=== PATIENT | male | born 1995 | race Caucasian/White ===

== ENCOUNTER 2021-12-28 12:26 | Outpatient (REF) | payer BC, SELFPAY ==
--- NOTE | ~2021-12-28 | XR_ITS ---
EXAMINATION: XR SHOULDER, RIGHT CLINICAL INFORMATION: Sprain of the acromioclavicular joint COMPARISON: None TECHNIQUE: Three views of the right shoulder. FINDINGS: No fracture or dislocation. The glenohumeral joint is well aligned. The acromioclavicular joint is intact. The visualized lung is clear. The visualized ribs are intact. XR/XR shoulder RT min 2V IMPRESSION: Normal right shoulder.
== END 2021-12-28 12:27 | disposition home or self-care (01) ==
LOC: HO.HMGCX 12:26
PROVIDERS: Visit Provider Internal Medicine
DX: S43.51XA Sprain of right acromioclavicular joint, initial encounter (principal)
CPT/HCPCS: 73030

== ENCOUNTER 2023-01-23 11:18 | Outpatient (REF) | payer OTHER, SELFPAY ==
--- NOTE | ~2023-01-23 | XR_ITS ---
EXAMINATION: XR CHEST CLINICAL INFORMATION: Wheezing COMPARISON: None available. TECHNIQUE: 2 views of the chest were obtained. FINDINGS: No significant abnormality is noted involving the heart, lungs, mediastinum, bony thorax or soft tissues. XR/XR chest 2V IMPRESSION: Unremarkable examination.
== END 2023-01-23 11:19 | disposition home or self-care (01) ==
LOC: HO.HMGCX 11:18
PROVIDERS: Visit Provider Nurse Practitioner Family
DX: R05.9 Cough, unspecified (principal); R06.2 Wheezing
CPT/HCPCS: 71046

== ENCOUNTER 2023-03-29 08:55 | Outpatient (AMB) | payer OTHER, SELFPAY ==
--- NOTE | 2023-03-29 08:58 | MHC.PC.OV ---
Vital Signs 03/29/23 08:59 Height 6 ft 4 in Weight 186 lb BMI 22.6 BP 130/78 Blood Pressure Location Rt brachial Position Sitting Pulse 72 Pulse Source Pulse Oximeter Pulse Oximetry (%) 98 Intake Visit Reasons: NPV-Requesting pe Intake Note: pt is here for npv, requesting physical. Stock Driver Required: No Accompanied by: Self / Same As Patient Allergies No Known Allergies [No Known Allergies*] Allergy (Verified 03/29/23 09:22) Tobacco use date assessed: 03/29/23 Dental Screening Dental Screen Date: 03/29/23 Did you have a dental visit in the last 12 months?: Yes Did you have a dental problem in the last 6 months where you did not have access to dental care?: No Was dental information given to patient?: Patient declined HPI HPI Comments History of Present Illness Details 27-year-old male presents to [facility] care. He was last seen by his former PCP 10-11 years ago. He notes he had blood work done at [facility] ED 2-3 months ago for c/o nausea and vertigo. He reports h/o ADHD, was on Ritalin when he was 9 y/o but stopped taking it d/t adverse reaction of excessive weight loss and feeling groggy. He states he attempted therapy a few times in the past but did not like it. He does not want to be referred to a therapist. He notes that he was followed by [facility]. He reports he has been increasing anxious, irritable, and unable to focus the past year. He is willing to start medication treatment. He denies diagnoses of anxiety and depression. He has been smoking 12-13 cigarette daily for the past 20 years. He requests medication treatment for smoking cassation. [facility] Surgical History (Updated 03/29/23 @ 09:03 by Keith Hernandez CMA) No pertinent past surgical history Social History (Updated 03/29/23 @ 09:04 by Keith Hernandez CMA) Housing: House Alcohol intake: current Alcohol intake frequency: a few times a month Alcohol type: beer Patient Tobacco Use Status: Current everyday Tobacco user Cigarettes Per Day: 12 e-Cigarette/Vaping Use: Never Used service: No Current occupational status: employed Current occupation: construction Current occupational exposures/hazards: No Cognitive needs: No Hearing needs: No Vision needs: No Questionnaire PHQ-9 Over the last 2 weeks, how often have you been bothered by any of the following problems? 1. Little interest or pleasure in doing things: more than half the days 2. Feeling down, depressed, or hopeless: several days 3. Trouble falling or staying asleep, or sleeping too much: nearly every day 4. Feeling tired or having little energy: more than half the days 5. Poor appetite or overeating: several days 6. Feeling bad about yourself - or that you are a failure or have let yourself or your family down: not at all 7. Trouble concentrating on things, such as reading the newspaper or watching television: nearly every day 8. Moving or speaking so slowly that other people could have noticed. Or the opposite - being so fidgety or restless that you have been moving around a lot more than usual: more than half the days 9. Thoughts that you would be better off or of hurting yourself in some way: not at all Total score: 14 Depression Screening Interpretation: Positive Depression Screening Follow-up: Existing condition and New Medication prescribed 90174 - PHQ-9 Billing: Yes Source: Developed by Drs. Morales Azul, Harika Lopez, Mk Bird and colleagues, with an educational anabella from [employer]. Thrive Questionnaire Date Thrive assessed: 03/29/23 I am a: Patient What is your living situation today?: I have a steady place to live Within the past 12 months, did the food you bought not last and you didn't have the money to get more?: Never true Within the past 12 months, did you worry whether your food would run out before you got money to buy more?: Never true Do you have trouble paying for medicines?: No Do you have trouble getting transportation to medical appointments?: No Do you have trouble paying your heating and electricity bill?: No Do you have trouble taking care of your child, family member or friend?: No Do you have trouble with day-to-day activities such as bathing, preparing meals, shopping, managing finances, etc.?: No Are you currently unemployed and looking for a job?: No Are you interested in more education?: No Please select the resources that you would like help with: None Currently or been in a relationship where the following occur: no concerns reported AUDIT C Alcohol Use Questionnaire (AUDIT-C) 1. How often do you have a drink containing alcohol?: 2-4 times a month 2. How many drinks containing alcohol do you have on a typical day when you are drinking?: 1 or 2 3. How often do you have six or more drinks on one occasion?: Never Total Score: 2 ODELL-7 AMB Questionnaire ODELL-7 Date ODELL - 7 assessed: 03/29/23 Feeling nervous, anxious, or on edge: 2 = More than half the days Not being able to stop or control worryin = Several days Worrying too much about different things: 2 = More than half the days Trouble relaxin = More than half the days Being so restless that it is hard to sit still: 2 = More than half the days Becoming easily annoyed or irritable: 3 = Nearly every day Feeling afraid as if something awful might happen: 2 = More than half the days Total ODELL-7 score (0-4 normal; 5-9 mild; 10-14 moderate; 15-21 severe): 14 Source: Developed by Drs. Morales Azul, Harika Lopez, Mk Bird and colleagues, with an educational anabella from [employer]. ODELL-7 Assessment Billing ODELL-7 Assessment Tool: ODELL-7 Assessment 04363 Review of Systems Const Details: Const Denies chills, Denies fatigue, Denies fever(s), Denies headache(s) and Denies weakness ENT Denies dizziness and Denies headache(s) Card Denies chest pain, Denies lightheadedness, Denies dyspnea and Denies other (Palpitations) Resp Denies cough, Denies dyspnea, Denies wheezing and Denies other ( shortness of breath) GI Denies abdominal pain, Denies melena, Denies hematochezia, Denies change in bowel habits, Denies dyspepsia and Denies nausea Denies hematuria and Denies dysuria Musc Denies abnormal gait, Denies myalgias, Denies arthralgias, Denies numbness and Denies tingling Skin/Breast Denies rash, Denies unusual bruising and Denies wounds Neuro Denies abnormal gait, Denies dizziness, Denies headache(s), Denies memory loss, Denies numbness, Denies Sensory deficit (Neuro), Denies tingling and Denies weakness Psych Reports anxiety and Reports depression Endo Denies cold intolerance, Denies fatigue, Denies heat intolerance, Denies polydipsia and Denies polyuria Aller/Immun Denies wheezing Physical exam (Primary Care) Vital Signs: Last Vital Signs Pulse 72 03/29/23 08:59 BP 130/78 03/29/23 08:59 Pulse Ox 98 03/29/23 08:59 BMI result Body Mass Index 22.6 Tobacco/Smoking Status: Tobacco use Status Tobacco use date assessed 03/29/23 03/29/23 09:01 Patient Tobacco Use Status Current everyday Tobacco 03/29/23 09:04 e-Cigarette/Vaping Use Never Used 03/29/23 09:04 PHQ-9: PHQ-9 Score PHQ-9: Total score 14 03/29/23 09:18 Depression Screening Interpretation: Positive Depression Screening Follow-up: Existing condition and New Medication prescribed Thrive Assessment: Date of Thrive Assessment Date Thrive assessed 03/29/23 03/29/23 09:08 Currently or been in a relationship where the following occur: no concerns reported Const Other: General: no acute distress and well developed Nutritional Appearance: well nourished Orientation/consciousness: patient oriented x3 HENMT Head: Yes normocephalic and Yes atraumatic Eyes General: appearance normal, both eyes and all related structures Pupils: Equal, round and reactive pupils present EOM: EOMs intact bilaterally Resp Effort & Inspection: normal respiratory effort Auscultation: clear to auscultation bilaterally Cardio Rate: regular rate Rhythm: regular rhythm Heart sounds: S1 normal heart sound present, S2 normal heart sound present, no gallops, no murmurs and no rubs GI Palpation (GI): No Abdominal aortic bruit present, Soft to palpation, nontender, No hepatosplenomegaly present and No Rebound tenderness present Auscultation: normal bowel sounds General: Yes no CVA tenderness Back/Spine/Pelvis Back: no CVA tenderness Cervical Spine: cervical ROM normal and No Cervical spine tenderness Thoracic/Lumbar Spine: thoraco-lumbar ROM normal, No pain with thoraco-lumbar ROM, No thoracic spinal tenderness and No lumbar spinal tenderness Extrem General: Yes normal to inspection, No edema and No calf tenderness Skin General: warm and dry. Normal skin color. Normal skin turgor Lesions: no lesions Rashes: no rashes Trauma: no lacerations or abrasions Wounds: no wounds Nails: normal Neuro General: patient oriented x3, gait normal and no focal neuro deficit Cranial nerves: Yes Equal, round and reactive pupils present Cognition (Neuro): normal cognition Gait exam (Neuro): Normal gait present Motor exam (neuro): 5/5 motor strength present throughout Sensory Exam: No Sensory deficit (Neuro) Psych Appearance: grossly normal Affect: normal affect Attitude: cooperative Thought process: Normal thought process present Assessment and Plan Assessment & Plan (1) Anxiety and depression: Code(s): F41.9 - Anxiety disorder, unspecified; F32.A - Depression, unspecified Plan: PHQ-9 and ODELL-7 scores revealed moderate depression and anxiety Declined talk therapy Wellbutrin ordered. Take as prescribed Routine exercise encouraged Will request and review lab work from [facility] ED in order more labs if warranted Follow-up in 1 month or return sooner with worsening or new symptoms Verbalized understanding and agreed with treatment plan (2) ADHD: Code(s): F90.9 - Attention-deficit hyperactivity disorder, unspecified type Plan: Reports history of ADHD Will obtain previous records to confirm diagnosis and change care plan if warranted Treatment as above (3) Smoking: Code(s): F17.200 - Nicotine dependence, unspecified, uncomplicated Plan: He notes he has been smoking 12-13 cigarette daily for the past 20 years. He requests medication treatment for smoking cassation. He is on Wellbutrin for anxiety, depression, and ADHD; may help with smoking cessation. Take as prescribed Follow-up in 1 month Return sooner with symptoms or concerns Verbalized understanding and agreed with the plan. Medications: New bupropion HCl 100 mg PO BID 60 tabs 3RF 30 days Coding Level of Care Code New Pt Level 3 (26872) Diagnoses Anxiety and depression F41.9; F32.A ADHD F90.9 Smoking F17.200 Additional Codes ODELL-7 Assessment Billing - ODELL-7 Assessment Tool: ODELL-7 Assessment 12534 ([id number]) Time Spent (min) 30
[2023-03-29 08:59] VITALS: BP 130/78; PULSE 72; O2SAT 98; BMI 22.6
== END 2023-03-29 09:49 | disposition home or self-care (01) ==
PROVIDERS: Visit Provider Nurse Practitioner Family
DX: F41.9 Anxiety disorder, unspecified (principal); F32.A Depression, unspecified; F90.9 Attention-deficit hyperactivity disorder, unspecified type; F17.200 Nicotine dependence, unspecified, uncomplicated
CPT/HCPCS: 96127; 99213

== ENCOUNTER 2023-04-26 08:34 | Outpatient (AMB) | payer OTHER, SELFPAY ==
[2023-04-26 08:38] VITALS: BP 118/78; PULSE 67; RESP 12; TEMP 36.5; O2SAT 99; BMI 22.4
--- NOTE | 2023-04-26 08:38 | A.OFFPC_ITS ---
Vital Signs 04/26/23 08:38 Height 6 ft 4 in Weight 184 lb 2 oz BMI 22.4 BP 118/78 Blood Pressure Location Lt brachial Position Sitting Respiration 12 Pulse 67 Pulse Source Pulse Oximeter Temp 97.7 F Temp Source Temporal Artery Scan Pulse Oximetry (%) 99 Oxygen Delivery Method Room Air Intake Visit Reasons: 1 month anxiety, depression, ADHD Intake Note: Patient currently doesnt have any concerns. Data Communications Technician Required: No Accompanied by: Self / Same As Patient Allergies No Known Allergies [No Known Allergies*] Allergy (Verified 04/26/23 08:51) Medication List - Last Reconciled 04/26/23 by Lincoln Lopez CNP bupropion HCl 100 mg PO BID 30 days Tobacco use date assessed: 03/29/23 Dental Screening Dental Screen Date: 04/26/23 Did you have a dental visit in the last 12 months?: No Did you have a dental problem in the last 6 months where you did not have access to dental care?: No Was dental information given to patient?: Yes HPI HPI Comments History of Present Illness Details 27-year-old male presents for anxiety, depression, and ADHD follow-up. He was prescribed Wellbutrin a month ago for mood disorders and smoking cessation. He notes he has been taking his medication as prescribed. He states that he is less irritable since he started Wellbutrin. He reports h/o ADHD at childhood. He notes he was on adderall. Review of his pediatric record revealed that the patient was diagnosed with ADHD and was on Adderall 10 mg in 2005 and Concerta 18 mg in 2004. He notes that he does not want to be on Adderall or Ritalin due to h/o adverse reactions such as decreased appetite on those medications. He notes that his cigarette smoking has reduced to 8 cigarettes from 12-13 daily. [facility] Medical History (Updated 04/26/23 @ 09:09 by Lincoln Lopez CNP) No pertinent past medical history Surgical History No pertinent past surgical history Social History Housing: House Alcohol intake: current Alcohol intake frequency: a few times a month Alcohol type: beer Patient Tobacco Use Status: Current everyday Tobacco user Cigarettes Per Day: 8 e-Cigarette/Vaping Use: Never Used service: No Current occupational status: employed Current occupation: construction Current occupational exposures/hazards: No Cognitive needs: No Hearing needs: No Vision needs: No Questionnaire PHQ-9 Over the last 2 weeks, how often have you been bothered by any of the following problems? 1. Little interest or pleasure in doing things: several days 2. Feeling down, depressed, or hopeless: several days 3. Trouble falling or staying asleep, or sleeping too much: more than half the days 4. Feeling tired or having little energy: more than half the days 5. Poor appetite or overeating: several days 6. Feeling bad about yourself - or that you are a failure or have let yourself or your family down: several days 7. Trouble concentrating on things, such as reading the newspaper or watching television: nearly every day 8. Moving or speaking so slowly that other people could have noticed. Or the opposite - being so fidgety or restless that you have been moving around a lot more than usual: more than half the days 9. Thoughts that you would be better off or of hurting yourself in some way: not at all Total score: 13 Depression Screening Interpretation: Positive Depression Screening Follow-up: Existing condition and In treatment Source: Developed by Drs. Morales Azul, Mk Cheng and colleagues, with an educational anabella from [employer]. Thrive Questionnaire Date Thrive assessed: 03/29/23 ODELL-7 AMB Questionnaire ODELL-7 Date ODELL - 7 assessed: 04/26/23 Feeling nervous, anxious, or on edge: 1 = Several days Not being able to stop or control worryin = Several days Worrying too much about different things: 2 = More than half the days Trouble relaxin = More than half the days Being so restless that it is hard to sit still: 2 = More than half the days Becoming easily annoyed or irritable: 2 = More than half the days Feeling afraid as if something awful might happen: 1 = Several days Total ODELL-7 score (0-4 normal; 5-9 mild; 10-14 moderate; 15-21 severe): 11 Source: Developed by Drs. Morales Azul, Mk Cheng and colleagues, with an educational anabella from [employer]. Review of Systems Const Details: Const Denies chills, Denies fatigue, Denies fever(s), Denies headache(s) and Denies weakness ENT Denies dizziness and Denies headache(s) Card Denies chest pain, Denies lightheadedness, Denies dyspnea and Denies other (Pal pitations) Resp Denies cough, Denies dyspnea, Denies wheezing and Denies other ( shortness of breath) GI Denies abdominal pain, Denies melena, Denies hematochezia, Denies change in bowel habits, Denies dyspepsia and Denies nausea Denies hematuria and Denies dysuria Musc Denies abnormal gait, Denies myalgias, Denies arthralgias, Denies numbness and Denies tingling Skin/Breast Denies rash, Denies unusual bruising and Denies wounds Neuro Denies abnormal gait, Denies dizziness, Denies headache(s), Denies memory loss, Denies numbness, Denies Sensory deficit (Neuro), Denies tingling and Denies weakness Psych Reports anxiety, Reports depression, Denies memory loss Endo Denies cold intolerance, Denies fatigue, Denies heat intolerance, Denies polydipsia and Denies polyuria Aller/Immun Denies wheezing Physical exam (Primary Care) Vital Signs: Last Vital Signs Temp 97.7 F 04/26/23 08:38 Pulse 67 04/26/23 08:38 Resp 12 04/26/23 08:38 BP 118/78 04/26/23 08:38 Pulse Ox 99 04/26/23 08:38 Oxygen Delivery Method Room Air 04/26/23 08:38 BMI result Body Mass Index 22.4 Tobacco/Smoking Status: Tobacco use Status Tobacco use date assessed 03/29/23 04/26/23 08:42 Patient Tobacco Use Status Current everyday Tobacco 04/26/23 08:42 e-Cigarette/Vaping Use Never Used 04/26/23 08:42 PHQ-9: PHQ-9 Score PHQ-9: Total score 13 04/26/23 12:30 Depression Screening Interpretation: Positive Depression Screening Follow-up: Existing condition and In treatment Thrive Assessment: Date of Thrive Assessment Date Thrive assessed 03/29/23 04/26/23 08:42 Const Other: General: no acute distress and well developed Nutritional Appearance: well nourished Orientation/consciousness: patient oriented x3 [facility] Head: Yes normocephalic and Yes atraumatic Eyes General: appearance normal, both eyes and all related structures Pupils: Equal, round and reactive pupils present EOM: EOMs intact bilaterally Resp Effort & Inspection: normal respiratory effort Auscultation: clear to auscultation bilaterally Cardio Rate: regular rate Rhythm: regular rhythm Heart sounds: S1 normal heart sound present, S2 normal heart sound present, no gallops, no murmurs and no rubs GI Palpation (GI): No Abdominal aortic bruit present, Soft to palpation, nontender, No hepatosplenomegaly present and No Rebound tenderness present Auscultation: normal bowel sounds General: Yes no CVA tenderness Back/Spine/Pelvis Back: no CVA tenderness Cervical Spine: cervical ROM normal and No Cervical spine tenderness Thoracic/Lumbar Spine: thoraco-lumbar ROM normal, No pain with thoraco-lumbar ROM, No thoracic spinal tenderness and No lumbar spinal tenderness Extrem General: Yes normal to inspection, No edema and No calf tenderness Skin General: warm and dry. Normal skin color. Normal skin turgor Lesions: no lesions Rashes: no rashes Trauma: no lacerations or abrasions Wounds: no wounds Nails: normal Neuro General: patient oriented x3, gait normal and no focal neuro deficit Cranial nerves: Yes Equal, round and reactive pupils present Cognition (Neuro): normal cognition Gait exam (Neuro): Normal gait present Sensory Exam: No Sensory deficit (Neuro) Psych Appearance: grossly normal Affect: normal affect Attitude: cooperative Thought process: Normal thought process present Assessment and Plan Assessment & Plan (1) Anxiety and depression: Code(s): F41.9 - Anxiety disorder, unspecified; F32.A - Depression, unspecified Plan: PHQ-9 and ODELL-7 scores revealed moderate anxiety and depression Bupropion increased to 150 mg twice daily. Take as prescribed Routine exercise encouraged Follow-up in 1 month for complete physical exam Return sooner with worsening or new symptoms Verbalized understanding and agreed with treatment plan. (2) ADHD: Code(s): F90.9 - Attention-deficit hyperactivity disorder, unspecified type Plan: He reports h/o ADHD at childhood. He notes he was on adderall. Review of his pediatric record revealed that the patient was diagnosed with ADHD and was on Adderall 10 mg in 2005 and Concerta 18 mg in 2004. He notes that he does not want to be on Adderall or Ritalin due to h/o adverse reactions such as decreased appetite on those medications. Contracts for ADHD management reviewed and signed by patient and PCP U tox ordered Strattera at recommended. However, this medication has serious adverse effect with Wellbutrin May order Strattera, discontinue Wellbutrin, and order nicotine patch for smoking cessation Patient states he will continue with the new dose of Wellbutrin and follow-up in a month for reassessment and will determine whether to start ADHD medication Encouraged to take Wellbutrin as prescribed Routine exercise encouraged Follow-up in 1 month or return sooner with worsening or new symptoms Verbalized understanding and agreed with treatment plan. (3) Smoking: Code(s): F17.200 - Nicotine dependence, unspecified, uncomplicated Plan: He notes that his cigarette smoking has reduced to 8 cigarettes from 12-13 d aily. Wellbutrin increased to 150 mg daily. Take as prescribed Smoking cessation encouraged Follow-up in 1 month Return sooner with symptoms or concerns Verbalized understanding and agreed with the plan. Orders: Orders Comprehensive [place]. Panel Fast Today Z00.00 - Encounter for general adult medical examination without abnormal findings Lipid Panel Today Z00.00 - Encounter for general adult medical examination without abnormal findings TSH reflex Free T4 Today Z00.00 - Encounter for general adult medical examination without abnormal findings Complete Blood Count Auto Diff Today Z00.00 - Encounter for general adult medical examination without abnormal findings UA CC w/rflx Micro + Cult Today Z00.00 - Encounter for general adult medical examination without abnormal findings AMB 14 Panel Urine Drug Screen Today Z51.81 - Encounter for therapeutic drug level monitoring Medications: New bupropion HCl (Wellbutrin SR) 150 mg PO BID 30 days 60 tabs 3RF Discontinued bupropion HCl Discontinued Reason: Doctor's Order 100 mg PO BID 30 days 60 tabs 3RF Coding Level of Care Code Est Pt Level 3 (63250) Diagnoses Anxiety and depression F41.9; F32.A ADHD F90.9 Smoking F17.200
== END 2023-04-26 09:33 | disposition home or self-care (01) ==
PROVIDERS: PCP Nurse Practitioner Family; Visit Provider Nurse Practitioner Family
DX: F41.9 Anxiety disorder, unspecified (principal); F32.A Depression, unspecified; F90.9 Attention-deficit hyperactivity disorder, unspecified type; F17.200 Nicotine dependence, unspecified, uncomplicated
CPT/HCPCS: 99213

== ENCOUNTER 2023-04-26 13:00 | Outpatient (REF) | payer OTHER, SELFPAY ==
[2023-04-26 13:13] LABS: Appearance Urine Clear; Color Urine Yellow; Glucose Urine UA Negative (Negative); Leukocyte Esterase Urine Negative (Negative); Nitrite Urine Negative (Negative); PH 5.5 (5.0-9.0); Specific Gravity - Urine >= 1.030 (1.005-1.025); Urine Blood Negative (Negative); Urine Ketones Trace mg/dL (Negative); Urine Protein Negative (Neg-Trace)
[2023-04-26 14:03] LABS: Amphetamine Screen Urine Not Detected (Not Detect); Barbiturates, Urine Not Detected (Not Detect); Benzodiazepines Screen Urine Not Detected (Not Detect); Cannabinoid Screen Urine Not Detected (Not Detect); Cocaine Screen Urine Not Detected (Not Detect); Fentanyl, urine Not Detected (Not Detect); Opiate Screen Urine Not Detected (Not Detect); Phencyclidine Screen Urine Not Detected (Not Detect)
== END 2023-04-26 13:01 | disposition home or self-care (01) ==
LOC: HO.LNP 13:00
PROVIDERS: Visit Provider Nurse Practitioner Family
DX: Z00.00 Encounter for general adult medical examination without abnormal findings (principal); F90.9 Attention-deficit hyperactivity disorder, unspecified type
CPT/HCPCS: 80307; 81003

== ENCOUNTER 2023-06-05 10:35 | Outpatient (AMB) | payer OTHER, SELFPAY ==
[2023-06-05 10:50] VITALS: BP 128/70; PULSE 77; RESP 12; TEMP 36.4; O2SAT 99; BMI 21.7
--- NOTE | 2023-06-05 10:50 | MHC.PC.OV ---
Vital Signs 06/05/23 10:50 Height 6 ft 4 in Weight 178 lb 6 oz BMI 21.7 BP 128/70 Blood Pressure Location Lt brachial Position Sitting Respiration 12 Pulse 77 Pulse Source Pulse Oximeter Temp 97.6 F Temp Source Temporal Artery Scan Pulse Oximetry (%) 99 Oxygen Delivery Method Room Air Intake Visit Reasons: 1 month anxiety, depression, ADHD Intake Note: Patient states that his has now left him and he now has to sell his home. Patient states that he hasn't been able to sleep. Patient states that he only had 45 min of sleep and was drinking until 3 AM. Patient states that medication is not working anymore. Manager Pacu Required: No Accompanied by: Self / Same As Patient Allergies No Known Allergies [No Known Allergies*] Allergy (Verified 06/05/23 11:01) Medication List - Last Reconciled 06/05/23 by Lincoln Lopez CNP bupropion HCl (Wellbutrin SR) 150 mg PO BID 30 days Tobacco use date assessed: 03/29/23 Dental Screening Dental Screen Date: 06/05/23 Did you have a dental visit in the last 12 months?: No Did you have a dental problem in the last 6 months where you did not have access to dental care?: No Was dental information given to patient?: Yes HPI HPI Comments History of Present Illness Details 27-year-old male presents to for anxiety, depression, and ADHD follow-up. His last office visit was last month. Wellbutrin was increased to 150 mg twice daily for anxiety, depression, ADHD, and smoking cessation. He reported improved anxiety and depression symptoms while on the medication. He also cut down to smoking 8 cigarettes daily. He presents with increased anxiety and depression symptoms. He attributes his symptoms to recent suppression with his . He states relationship with his breakdown a month ago and she left him last night. He states has to sell the house. He did not get adequate amount of sleep last night; he slept for 45 minutes and stayed up drinking alcohol until 03:00 today. He notes that he had 6 beers last night and 6-7 beers a week ago. He denies excessive alcohol consumption. However, his cigarette smoking has increased to 1 and half to 2 packs daily. He states that Wellbutrin is no longer effective in controlling his symptoms. He requests a change of medication to Fluoxetine. He requests a referral to a therapist to talk about my problems that i have repressed for the past 20 years. He declines Psychiatry referral at this time. He denies suicidal or homicidal ideation and contracts for safety. He states that his father committed suicide and that suicide is for the weak. He notes he will continues to address his problems positively. [facility] Medical History No pertinent past medical history Surgical History No pertinent past surgical history Social History Housing: House Alcohol intake: current Alcohol intake frequency: a few times a month Alcohol type: beer Patient Tobacco Use Status: Current everyday Tobacco user Cigarette Packs Per Day: 2 Cigarettes Per Day: 40 e-Cigarette/Vaping Use: Never Used service: No Current occupational status: employed Current occupation: construction Current occupational exposures/hazards: No Cognitive needs: No Hearing needs: No Vision needs: No Questionnaire PHQ-9 Over the last 2 weeks, how often have you been bothered by any of the following problems? 1. Little interest or pleasure in doing things: nearly every day 2. Feeling down, depressed, or hopeless: nearly every day 3. Trouble falling or staying asleep, or sleeping too much: nearly every day 4. Feeling tired or having little energy: nearly every day 5. Poor appetite or overeating: nearly every day 6. Feeling bad about yourself - or that you are a failure or have let yourself or your family down: nearly every day 7. Trouble concentrating on things, such as reading the newspaper or watching television: nearly every day 8. Moving or speaking so slowly that other people could have noticed. Or the opposite - being so fidgety or restless that you have been moving around a lot more than usual: nearly every day 9. Thoughts that you would be better off or of hurting yourself in some way: not at all Total score: 24 Depression Screening Interpretation: Positive Depression Screening Follow-up: Existing condition, In treatment and Community Mental Health Worker F/U Depression Screening Done: Yes Source: Developed by Drs. Morales Azul, Harika Lopez, Mk Bird and colleagues, with an educational anabella from [employer]. Thrive Questionnaire Date Thrive assessed: 03/29/23 ODELL-7 AMB Questionnaire ODELL-7 Date ODELL - 7 assessed: 06/05/23 Feeling nervous, anxious, or on edge: 3 = Nearly every day Not being able to stop or control worryin = Nearly every day Worrying too much about different things: 3 = Nearly every day Trouble relaxin = Nearly every day Being so restless that it is hard to sit still: 3 = Nearly every day Becoming easily annoyed or irritable: 3 = Nearly every day Feeling afraid as if something awful might happen: 3 = Nearly every day Total ODELL-7 score (0-4 normal; 5-9 mild; 10-14 moderate; 15-21 severe): 21 Source: Developed by Drs. Morales Azul, Harika Lopez, Mk Bird and colleagues, with an educational anabella from [employer]. Review of Systems Const Details: Const Denies chills, Denies fatigue, Denies fever(s), Denies headache(s) and Denies weakness ENT Denies dizziness and Denies headache(s) Card Denies chest pain, Denies lightheadedness, Denies dyspnea and Denies other (Palpitations) Resp Denies cough, Denies dyspnea, Denies wheezing and Denies other ( shortness of breath) GI Denies abdominal pain, Denies melena, Denies hematochezia, Denies change in bowel habits, Denies dyspepsia and Denies nausea Denies hematuria and Denies dysuria Musc Denies abnormal gait, Denies myalgias, Denies arthralgias, Denies numbness and Denies tingling Skin/Breast Denies rash, Denies unusual bruising and Denies wounds Neuro Denies abnormal gait, Denies dizziness, Denies headache(s), Denies memory loss, Denies numbness, Denies Sensory deficit (Neuro), Denies tingling and Denies weakness Psych Reports anxiety, Reports depression, Denies memory loss Endo Denies cold intolerance, Denies fatigue, Denies heat intolerance, Denies polydipsia and Denies polyuria Aller/Immun Denies wheezing Physical exam (Primary Care) Vital Signs: Last Vital Signs Temp 97.6 F 06/05/23 10:50 Pulse 77 06/05/23 10:50 Resp 12 06/05/23 10:50 BP 128/70 06/05/23 10:50 Pulse Ox 99 06/05/23 10:50 Oxygen Delivery Method Room Air 06/05/23 10:50 BMI result Body Mass Index 21.7 Tobacco/Smoking Status: Tobacco use Status Tobacco use date assessed 03/29/23 06/05/23 11:00 Patient Tobacco Use Status Current everyday Tobacco 06/05/23 11:00 e-Cigarette/Vaping Use Never Used 06/05/23 11:00 PHQ-9: PHQ-9 Score PHQ-9: Total score 24 06/05/23 11:03 Depression Screening Interpretation: Positive Depression Screening Follow-up: Existing condition, In treatment and Community Mental Health Worker F/U Thrive Assessment: Date of Thrive Assessment Date Thrive assessed 03/29/23 06/05/23 11:00 Const Other: General: no acute distress and well developed Nutritional Appearance: well nourished Orientation/consciousness: patient oriented x3 HENMT Head: Yes normocephalic and Yes atraumatic Eyes General: appearance normal, both eyes and all related structures Pupils: Equal, round and reactive pupils present EOM: EOMs intact bilaterally Resp Effort & Inspection: normal respiratory effort Auscultation: clear to auscultation bilaterally Cardio Rate: regular rate Rhythm: regular rhythm Heart sounds: S1 normal heart sound present, S2 normal heart sound present, no gallops, no murmurs and no rubs GI Palpation (GI): No Abdominal aortic bruit present, Soft to palpation, nontender, No hepatosplenomegaly present and No Rebound tenderness present Auscultation: normal bowel sounds General: Yes no CVA tenderness Back/Spine/Pelvis Back: no CVA tenderness Cervical Spine: cervical ROM normal and No Cervical spine tenderness Thoracic/Lumbar Spine: thoraco-lumbar ROM normal, No pain with thoraco-lumbar ROM, No thoracic spinal tenderness and No lumbar spinal tenderness Extrem General: Yes normal to inspection, No edema and No calf tenderness Skin General: warm and dry. Normal skin color. Normal skin turgor Lesions: no lesions Rashes: no rashes Trauma: no lacerations or abrasions Wounds: no wounds Nails: normal Neuro General: patient oriented x3, gait normal and no focal neuro deficit Cranial nerves: Yes Equal, round and reactive pupils present Cognition (Neuro): normal cognition Gait exam (Neuro): Normal gait present Sensory Exam: No Sensory deficit (Neuro) Psych Appearance: grossly normal Affect: normal affect Attitude: cooperative Thought process: Normal thought process present Assessment and Plan Assessment & Plan (1) Anxiety and depression: Code(s): F41.9 - Anxiety disorder, unspecified; F32.A - Depression, unspecified Plan: PHQ-9 and ODELL-7 scores revealed severe depression and anxiety. Previous PHQ and ODELL-7 scores were moderate depression and anxiety respectively. He is experiencing significant anxiety and depression symptoms likely due to current issues and separation with his . Bupropion discontinued. Fluoxetine ordered. Take as prescribed. The community navigator informed about the patient's symptoms and asked to place an expedited referral to a therapist. Patient met with the community navigator. Routine exercise encouraged. Encouraged to avoid excessive alcohol consumption. Follow-up in 2 weeks or return sooner with worsening or new symptoms. Advised to call the crisis line or 911 if experiencing SI/HI or crisis. Verbalized understanding and agreed with treatment plan. (2) ADHD: Code(s): F90.9 - Attention-deficit hyperactivity disorder, unspecified type Plan: As above (3) Smoking: Code(s): F17.200 - Nicotine dependence, unspecified, uncomplicated Plan: He notes that bupropion is no longer effective in managing his symptoms. His cigarette smoking has increased to 1 and half to 2 packs daily. Instructed on the health risks and complications of cigarette smoking. Smoking cessation encouraged. Nicotine patch ordered. Use as prescribed Follow-up in 2 weeks or return sooner with symptoms or concerns Verbalized understanding and agreed with treatment plan. Medications: New fluoxetine 20 mg PO DAILY 30 days 30 tabs 3RF nicotine Apply 21 mg patch q.d. x6 weeks, then apply 14 mg patch q.d. x2 weeks, then apply 7 mg patch q.d. x2 weeks. Stop cigarette use at treatment onset. 1 patch transdermal DAILY 10 weeks 70 ea 0RF Discontinued bupropion HCl (Wellbutrin SR) Discontinued Reason: Doctor's Order 150 mg PO BID 30 days 60 tabs 3RF Coding Level of Care Code Est Pt Level 3 (09224) Diagnoses Anxiety and depression F41.9; F32.A ADHD F90.9 Smoking F17.200
== END 2023-06-05 12:02 | disposition home or self-care (01) ==
PROVIDERS: PCP Nurse Practitioner Family; Visit Provider Nurse Practitioner Family
DX: F41.9 Anxiety disorder, unspecified (principal); F32.A Depression, unspecified; F90.9 Attention-deficit hyperactivity disorder, unspecified type; F17.200 Nicotine dependence, unspecified, uncomplicated
CPT/HCPCS: 99214

== ENCOUNTER 2023-07-31 12:43 | Outpatient (AMB) | payer OTHER, SELFPAY ==
--- NOTE | 2023-07-31 12:54 | MHC.PC.OV ---
Vital Signs 07/31/23 12:58 Height 6 ft 4 in Weight 176 lb 2 oz BMI 21.4 BP 124/70 Blood Pressure Location Lt brachial Position Sitting Respiration 13 Pulse 77 Pulse Source Pulse Oximeter Temp 98.4 F Temp Source Temporal Artery Scan Pulse Oximetry (%) 99 Oxygen Delivery Method Room Air Intake Visit Reasons: 2 wks anxiety, depression Tool Coordinator Required: No Accompanied by: Self / Same As Patient Allergies No Known Allergies [No Known Allergies*] Allergy (Verified 07/31/23 13:33) Medication List - Last Reconciled 07/31/23 by Lincoln Lopez CNP fluoxetine 20 mg PO DAILY 30 days nicotine 1 patch transdermal DAILY 10 weeks Tobacco use date assessed: 07/31/23 Dental Screening Dental Screen Date: 07/31/23 Did you have a dental visit in the last 12 months?: No Did you have a dental problem in the last 6 months where you did not have access to dental care?: No Was dental information given to patient?: Patient has dentist HPI HPI Comments History of Present Illness Details 28-year-old male presents for anxiety and depression follow-up. He was last seen in May and reported increased anxiety and depression symptoms related to suppression with his . His smoking increased increased to 1 and half to 2 packs daily. He noted that bupropion was no longer effective. Fluoxetine and nicotine patch were ordered. He admits to taking Fluoxetine as prescribed with improved symptoms and no adverse reactions. He notes that he is happier than ever and is finalizing divorce with his . He is more social and hanging out often with friends. He states that he was never contacted to establish with a therapist, however, he does not need a therapist at time. He states that he is cutting down on smoking and currently smokes 15 cigarettes daily. He uses the nicotine patch on and off. [facility] Medical History No pertinent past medical history Surgical History No pertinent past surgical history Social History Housing: House Alcohol intake: current Alcohol intake frequency: a few times a month Alcohol type: beer Patient Tobacco Use Status: Current everyday Tobacco user Cigarette Packs Per Day: 0.75 Cigarettes Per Day: 15 e-Cigarette/Vaping Use: Never Used service: No Current occupational status: employed Current occupation: construction Current occupational exposures/hazards: No Cognitive needs: No Hearing needs: No Vision needs: No Questionnaire PHQ-9 Over the last 2 weeks, how often have you been bothered by any of the following problems? 1. Little interest or pleasure in doing things: several days 2. Feeling down, depressed, or hopeless: several days 3. Trouble falling or staying asleep, or sleeping too much: nearly every day 4. Feeling tired or having little energy: several days 5. Poor appetite or overeating: several days 6. Feeling bad about yourself - or that you are a failure or have let yourself or your family down: not at all 7. Trouble concentrating on things, such as reading the newspaper or watching television: several days 8. Moving or speaking so slowly that other people could have noticed. Or the opposite - being so fidgety or restless that you have been moving around a lot more than usual: more than half the days 9. Thoughts that you would be better off or of hurting yourself in some way: not at all Total score: 10 Depression Screening Interpretation: Positive Depression Screening Follow-up: Existing condition and In treatment Depression Screening Done: Yes 62933 - PHQ-9 Billing: Yes Source: Developed by Drs. Morales Azul, Harika Lopez, Mk Bird and colleagues, with an educational anabella from [employer]. Thrive Questionnaire Date Thrive assessed: 03/29/23 ODELL-7 AMB Questionnaire ODELL-7 Date ODELL - 7 assessed: 07/31/23 Feeling nervous, anxious, or on edge: 2 = More than half the days Not being able to stop or control worryin = Several days Worrying too much about different things: 2 = More than half the days Trouble relaxin = Several days Being so restless that it is hard to sit still: 2 = More than half the days Becoming easily annoyed or irritable: 2 = More than half the days Feeling afraid as if something awful might happen: 1 = Several days Total ODELL-7 score (0-4 normal; 5-9 mild; 10-14 moderate; 15-21 severe): 11 Source: Developed by Drs. Morales Azul, Harika Lopez, Mk Bird and colleagues, with an educational anabella from [employer]. ODELL-7 Assessment Billing ODELL-7 Assessment Tool: ODELL-7 Assessment 86978 Review of Systems Const Details: Const Denies chills, Denies fatigue, Denies fever(s), Denies headache(s) and Denies weakness ENT Denies dizziness and Denies headache(s) Card Denies chest pain, Denies lightheadedness, Denies dyspnea and Denies other (Palpitations) Resp Denies cough, Denies dyspnea, Denies wheezing and Denies other ( shortness of breath) GI Denies abdominal pain, Denies melena, Denies hematochezia, Denies change in bowel habits, Denies dyspepsia and Denies nausea Denies hematuria and Denies dysuria Musc Denies abnormal gait, Denies myalgias, Denies arthralgias, Denies numbness and Denies tingling Skin/Breast Denies rash, Denies unusual bruising and Denies wounds Neuro Denies abnormal gait, Denies dizziness, Denies headache(s), Denies memory loss, Denies numbness, Denies Sensory deficit (Neuro), Denies tingling and Denies weakness Psych Denies anxiety, Denies depression, Denies memory loss Endo Denies cold intolerance, Denies fatigue, Denies heat intolerance, Denies polydipsia and Denies polyuria Aller/Immun Denies wheezing Physical exam (Primary Care) Tobacco/Smoking Status: Tobacco use Status Tobacco use date assessed 03/29/23 07/31/23 12:55 Patient Tobacco Use Status Current everyday Tobacco 07/31/23 12:55 e-Cigarette/Vaping Use Never Used 07/31/23 12:55 Depression Screening Interpretation: Positive Depression Screening Follow-up: Existing condition and In treatment Thrive Assessment: Date of Thrive Assessment Date Thrive assessed 03/29/23 07/31/23 12:55 Const Other: General: no acute distress and well developed Nutritional Appearance: well nourished Orientation/consciousness: patient oriented x3 HENMT Head: Yes normocephalic and Yes atraumatic Eyes General: appearance normal, both eyes and all related structures Pupils: Equal, round and reactive pupils present EOM: EOMs intact bilaterally Resp Effort & Inspection: normal respiratory effort Auscultation: clear to auscultation bilaterally Cardio Rate: regular rate Rhythm: regular rhythm Heart sounds: S1 normal heart sound present, S2 normal heart sound present, no gallops, no murmurs and no rubs GI Palpation (GI): No Abdominal aortic bruit present, Soft to palpation, nontender, No hepatosplenomegaly present and No Rebound tenderness present Auscultation: normal bowel sounds General: Yes no CVA tenderness Back/Spine/Pelvis Back: no CVA tenderness Cervical Spine: cervical ROM normal and No Cervical spine tenderness Thoracic/Lumbar Spine: thoraco-lumbar ROM normal, No pain with thoraco-lumbar ROM, No thoracic spinal tenderness and No lumbar spinal tenderness Extrem General: Yes normal to inspection, No edema and No calf tenderness Skin General: warm and dry. Normal skin color. Normal skin turgor Lesions: no lesions Rashes: no rashes Trauma: no lacerations or abrasions Wounds: no wounds Nails: normal Neuro General: patient oriented x3, gait normal and no focal neuro deficit Cranial nerves: Yes Equal, round and reactive pupils present Cognition (Neuro): normal cognition Gait exam (Neuro): Normal gait present Sensory Exam: No Sensory deficit (Neuro) Psych Appearance: grossly normal Affect: normal affect Attitude: cooperative Thought process: Normal thought process present Assessment and Plan Assessment & Plan (1) Anxiety and depression: Code(s): F41.9 - Anxiety disorder, unspecified; F32.A - Depression, unspecified Plan: Reports significant improvement of his anxiety and depression symptoms. He is finalizing divorce with his , happier, and more social PHQ-9 and ODELL-7 scores revealed moderate depression and anxiety respectively Continue to take fluoxetine as prescribed Routine exercise encouraged Will continue to monitor Follow-up in 4-6 weeks for an extended physical exam Return with worsening or new symptoms Verbalized understanding and agreed with treatment (2) ADHD: Code(s): F90.9 - Attention-deficit hyperactivity disorder, unspecified type Plan: As above (3) Smoking: Code(s): F17.200 - Nicotine dependence, unspecified, uncomplicated Plan: He states that he is cutting down on smoking and currently smokes 15 cigarettes daily. He uses the nicotine patch on and off. Smoking cessation encouraged Advised to be more consistent with using nicotine patch and to continue to cut down on smoking Verbalized understanding and agreed with treatment plan Coding Level of Care Code Est Pt Level 3 (22372) Diagnoses Anxiety and depression F41.9; F32.A ADHD F90.9 Smoking F17.200 Additional Codes ODELL-7 Assessment Billing - ODELL-7 Assessment Tool: ODELL-7 Assessment [id number] ([id number])
[2023-07-31 12:58] VITALS: BP 124/70; PULSE 77; RESP 13; TEMP 36.9; O2SAT 99; BMI 21.4
== END 2023-07-31 13:50 | disposition home or self-care (01) ==
PROVIDERS: PCP Nurse Practitioner Family; Visit Provider Nurse Practitioner Family
DX: F41.9 Anxiety disorder, unspecified (principal); F32.A Depression, unspecified; F90.9 Attention-deficit hyperactivity disorder, unspecified type; F17.200 Nicotine dependence, unspecified, uncomplicated
CPT/HCPCS: 96127; 99213

== ENCOUNTER 2024-10-22 07:57 | Outpatient (AMB) | payer OTHER, SELFPAY ==
--- NOTE | 2024-10-22 08:04 | A.OFFPC_ITS ---
Vital Signs 10/22/24 08:10 Height 6 ft 3 in Weight 209 lb BMI 26.1 BP 127/66 Blood Pressure Location Rt brachial Position Sitting Respiration 16 Pulse 66 Pulse Source Pulse Oximeter Temp 98.2 F Temp Source Oral Pulse Oximetry (%) 100 Oxygen Delivery Method Room Air Intake Visit Reasons: restablish care/med refill Intake Note: patient here to establish care and med refill Shoulder Sawyer Required: No Allergies No Known Allergies [No Known Allergies*] Allergy (Verified 10/22/24 08:12) Medication List - Last Reconciled 10/22/24 by Lincoln Lopez CNP fluoxetine 20 mg PO DAILY 30 days nicotine 1 patch transdermal DAILY 10 weeks Tobacco use date assessed: 10/22/24 Dental Screening Dental Screen Date: 10/22/24 Did you have a dental visit in the last 12 months?: Yes Did you have a dental problem in the last 6 months where you did not have access to dental care?: No Was dental information given to patient?: Patient has dentist HPI HPI Comments History of Present Illness Details 29-year-old male presents for a follow-u p visit. His last office visit was in 07/2023. He relocated to [place]. He was on fluoxetine 20 mg daily for anxiety and depression but has not taken the medication since last summer. Acute issue(s) - Anxiety and depression are generally c ontrolled. He sometimes feels irritable and unable to focus at work. He notes that his symptoms were much improved on fluoxetine and requests to restart the medication. Past Medical History - ADHD, anxiety, depression Social History - Former smoker, quit a year ago. Does n ot vape. Drinks 4-5 beers weekly or 12 beers monthly. Denies recreational drug use - Has been making healthy dietary choice s. Walks routinely. Generally sleep well Health maintenance - Last eye exam was 2 years ago. Routine eye exam encouraged. Declined ophthalmology referral - Last dental visit was in 04/2024. He ge ts routine dental cleaning - Last tetanus vaccine was in 08/20/2024 - Has not been vaccinated for the flu ; declines vaccination [facility] Medical History No pertinent past medical history Surgical History No pertinent past surgical history Social History Housing: House Alcohol intake: current Alcohol intake frequency: a few times a month Alcohol type: beer Patient Tobacco Use Status: Former Tobacco user e-Cigarette/Vaping Use: Never Used Second Hand Smoke Exposure: No service: No Current occupational status: employed Current occupation: construction Current occupational exposures/hazards: No Cognitive needs: No Hearing needs: No Vision needs: No Questionnaire PHQ-9 Over the last 2 weeks, how often have you been bothered by any of the following problems? 1. Little interest or pleasure in doing things: several days 2. Feeling down, depressed, or hopeless: several days 3. Trouble falling or staying asleep, or sleeping too much: several days 4. Feeling tired or having little energy: several days 5. Poor appetite or overeating: not at all 6. Feeling bad about yourself - or that you are a failure or have let yourself or your family down: several days 7. Trouble concentrating on things, such as reading the newspaper or watching television: more than half the days 8. Moving or speaking so slowly that other people could have noticed. Or the opposite - being so fidgety or restless that you have been moving around a lot more than usual: more than half the days 9. Thoughts that you would be better off or of hurting yourself in some way: not at all Total score: 9 Depression Screening Interpretation: Positive Depression Screening Follow-up: Existing condition Depression Screening Done: Yes 09735 - PHQ-9 Billing: Yes Source: Developed by Drs. Morales Azul, Harika Lopez, Mk Bird and colleagues, with an educational anabella from [employer]. Thrive Questionnaire Date Thrive assessed: 10/22/24 I am a: Parent/Caregiver What is your living situation today?: I have a steady place to live Within the past 12 months, did the food you bought not last and you didn't have the money to get more?: Never true Within the past 12 months, did you worry whether your food would run out before you got money to buy more?: Never true Do you have trouble paying for medicines?: No Do you have trouble getting transportation to medical appointments?: No Do you have trouble paying your heating and electricity bill?: No Do you have trouble taking care of your child, family member or friend?: No Do you have trouble with day-to-day activities such as bathing, preparing meals, shopping, managing finances, etc.?: No Are you currently unemployed and looking for a job?: No Are you interested in more education?: No Please select the resources that you would like help with: None Currently or been in a relationship where the following occur: I choose not to answer THRIVE Score: 0 AUDIT C Alcohol Use Questionnaire (AUDIT-C) 1. How often do you have a drink containing alcohol?: 2-4 times a month 2. How many drinks containing alcohol do you have on a typical day when you are drinking?: 1 or 2 3. How often do you have six or more drinks on one occasion?: Less than monthly Total Score: 3 Score Reviewed/Action Taken: Yes ODELL-7 AMB Questionnaire ODELL-7 Date ODELL - 7 assessed: 10/22/24 Feeling nervous, anxious, or on edge: 1 = Several days Not being able to stop or control worryin = Not at all Worrying too much about different things: 0 = Not at all Trouble relaxin = Several days Being so restless that it is hard to sit still: 1 = Several days Becoming easily annoyed or irritable: 1 = Several days Feeling afraid as if something awful might happen: 0 = Not at all Total ODELL-7 score (0-4 normal; 5-9 mild; 10-14 moderate; 15-21 severe): 4 Source: Developed by Drs. Morales Azul, Harika Lopez, Mk Bird and colleagues, with an educational anabella from [employer]. ODELL-7 Assessment Billing ODELL-7 Assessment Tool: ODELL-7 Assessment 28166 Review of Systems Const Details: Denies chills, Denies fatigue, Denies fever(s), Denies headache(s) and Denies weakness HEENT Denies change in vision, Denies dizziness, Denies headache(s), Denies hearing loss, Denies nasal congestion, Denies sinus pain, Denies sinus pressure and Denies sore throat Card Denies chest pain, Denies lightheadedness, Denies dyspnea and Denies other (palpitations) Resp Denies cough, Denies dyspnea and Denies wheezing GI Denies abdominal pain, Denies melena, Denies hematochezia, Denies change in bowel habits, Denies dyspepsia and Denies nausea Denies hematuria and Denies dysuria Musc Denies abnormal gait, Denies myalgias, Denies arthralgias, Denies numbness and Denies tingling Skin/Breast Denies rash, Denies unusual bruising and Denies wounds Neuro Denies abnormal gait, Denies dizziness, Denies headache(s), Denies memory loss, Denies numbness, Denies Sensory deficit (Neuro), Denies tingling and Denies weakness Psych Denies anxiety, Denies depression and Denies memory loss Endo Denies cold intolerance, Denies fatigue, Denies heat intolerance, Denies polydipsia and Denies polyuria Dawit/Lymph Denies easy bleeding and Denies easy bruising Aller/Immun Denies wheezing Physical exam (Primary Care) Vital Signs: Last Vital Signs Temp 98.2 F 10/22/24 08:10 Pulse 66 10/22/24 08:10 Resp 16 10/22/24 08:10 BP 127/66 10/22/24 08:10 Pulse Ox 100 10/22/24 08:10 Oxygen Delivery Method Room Air 10/22/24 08:10 BMI result Body Mass Index 26.1 Tobacco/Smoking Status: Tobacco use Status Tobacco use date assessed 10/22/24 10/22/24 08:13 Patient Tobacco Use Status Current everyday Tobacco 10/22/24 08:05 e-Cigarette/Vaping Use Never Used 10/22/24 08:05 PHQ-9: PHQ-9 Score PHQ-9: Total score 9 10/22/24 08:09 Depression Screening Interpretation: Positive Depression Screening Follow-up: Existing condition Thrive Assessment: Date of Thrive Assessment Date Thrive assessed 10/22/24 10/22/24 08:09 Currently or been in a relationship where the following occur: I choose not to answer Const Other: General: no acute distress, well developed, alert and awake Nutritional Appearance: well nourished Orientation/consciousness: patient oriented x3 HENMT Head: Yes normocephalic and Yes atraumatic Ears: hearing grossly normal bilaterally and TM's normal bilaterally General nose exam: Normal external nose present and Normal nares present Mouth: Normal oral and palatal mucosa present and moist mucous membranes Teeth and gingiva: dentition normal Throat: Yes oropharynx normal Eyes Pupils: Equal, round and reactive pupils present and Pupil accommodation reflex normal EOM: EOMs intact bilaterally Neck Neck: Yes normal visual inspection, Yes no lymphadenopathy and Yes trachea midline Thyroid: Thyroid normal Carotids: no bruits Lymphatic: no lymphadenopathy noted Chest Chest palpation & inspection: normal inspection of the chest Resp Effort & Inspection: normal respiratory effort Auscultation: clear to auscultation bilaterally Cardio Rate: regular rate Rhythm: regular rhythm Heart sounds: S1 normal heart sound present, S2 normal heart sound present, no gallops, no murmurs and no rubs Bruits: no abdominal aortic bruits and no carotid bruits GI Palpation (GI): No Abdominal aortic bruit present, Soft to palpation, nontender, No hepatosplenomegaly present and No Rebound tenderness present Auscultation: normal bowel sounds General: Yes no CVA tenderness Back/Spine/Pelvis Back: no CVA tenderness Cervical Spine: cervical ROM normal and No Cervical spine tenderness Thoracic/Lumbar Spine: thoraco-lumbar ROM normal, No pain with thoraco-lumbar ROM, No thoracic spinal tenderness and No lumbar spinal tenderness Skin General: warm and dry. Normal skin color. Normal skin turgor Lesions: no lesions Rashes: no rashes Trauma: no lacerations or abrasions Wounds: no wounds Nails: normal Neuro General: patient oriented x3, gait normal and CN's II-XI intact bilaterally Cranial nerves: Yes Equal, round and reactive pupils present Cognition (Neuro): normal cognition Gait exam (Neuro): Normal gait present Motor exam (neuro): 5/5 motor strength present throughout Sensory Exam: No Sensory deficit (Neuro) Deep tendon reflexes (DTR's): Right patellar reflex intensity grade: 2+ and Left patellar reflex intensity grade: 2+ Extrem General: Yes normal to inspection, No edema and No calf tenderness Psych Appearance: grossly normal Affect: normal affect Attitude: cooperative Thought process: Normal thought process present Coding Level of Care Code Est Pt Level 3 (94261) Est Pt Prev Care 18-39y(21363) Diagnoses Normal physical examination, routine Z00.00 Anxiety and depression F41.9; F32.A Laboratory tests ordered as part of a complete physical exam (CPE) Z00.00 Additional Codes ODELL-7 Assessment Billing - ODELL-7 Assessment Tool: ODELL-7 Assessment 74761 ([id number]) PHQ-9 - 21796 - PHQ-9 Billing: Yes ([id number]) Assessment & Plan Assessment & Plan (1) Normal physical examination, routine: Code(s): Z00.00 - Encounter for general adult medical examination without abnormal findings Category: Medical Plan: No significant functional limitations noted. Healthy diet and routine exercise encouraged. Advised to get lab work done and follow-up for telehealth visit in 2-3 weeks for labs review. Return sooner with symptoms or concerns. Verbalized understanding and agreed with treatment plan. (2) Anxiety and depression: Code(s): F41.9 - Anxiety disorder, unspecified; F32.A - Depression, unspecified Category: Medical Plan: Anxiety and depressive symptoms are generally well controlled. However, his symptoms irritable and unable to focus at work. He generally sleeps well. Fluoxetine 20 mg daily refilled as requested; advised to take as prescribed. Instructed on the risks, benefits, and potential adverse reactions of the medication. Routine exercise encouraged. Follow-up with worsening or new symptoms. Verbalized understanding and agreed with treatment plan. (3) Laboratory tests ordered as part of a complete physical exam (CPE): Code(s): Z00.00 - Encounter for general adult medical examination without abnormal findings Category: Medical Plan: Fasting labs ordered as part of a complete physical exam. Advised to fast for at least 10 hours before getting labs drawn. May drink water Verbalized understanding and agreed with treatment plan. Orders: Orders Comprehensive Chase. Panel Fast Today Z00.00 - Encounter for general adult m edical examination without abnormal findings Lipid Panel Today Z00.00 - Encounter for general adult medical examination without abnormal findings TSH reflex Free T4 Today Z00.00 - Encounter for general adult medical examination without abnormal findings UA CC w/rflx Micro + Cult Today Z00.00 - Encounter for general adult medical examination without abnormal findings Complete Blood Count Auto Diff Today Z00.00 - Encounter for general adult medical examination without abnormal findings Microalbumin, Random (w Creat) Today Z00.00 - Encounter for general adult medical examination without abnormal findings Vitamin D 25-OH Total Today Z00.00 - Encounter for general adult medical examination without abnormal findings Medications: Refilled fluoxetine 20 mg PO DAILY 30 days 30 tabs 3RF Discontinued nicotine Apply 21 mg patch q.d. x6 weeks, then apply 14 mg patch q.d. x2 weeks, then apply 7 mg patch q.d. x2 weeks. Stop cigarette use at treatment onset. Discontinued Reason: Patient no longer taking 1 patch transdermal DAILY 10 weeks 70 ea 0RF
[2024-10-22 08:10] VITALS: BP 127/66; PULSE 66; RESP 16; TEMP 36.8; O2SAT 100; BMI 26.1
== END 2024-10-22 08:29 | disposition home or self-care (01) ==
PROVIDERS: PCP Nurse Practitioner Family; Visit Provider Nurse Practitioner Family
DX: Z00.00 Encounter for general adult medical examination without abnormal findings (principal); F41.9 Anxiety disorder, unspecified; F32.A Depression, unspecified

== ENCOUNTER → 2024-10-22 07:57 | Outpatient (BNVA) | payer OTHER, SELFPAY | PROVIDERS: PCP Nurse Practitioner Family; Visit Provider Nurse Practitioner Family | DX: Z00.00 Encounter for general adult medical examination without abnormal findings (principal); F41.9 Anxiety disorder, unspecified; F32.A Depression, unspecified; Z79.899 Other long term (current) drug therapy | CPT/HCPCS: 96127 ==

== ENCOUNTER 2024-10-22 08:35 | Outpatient (REF) | payer OTHER, SELFPAY ==
--- OUTSIDE RECORDS SUMMARY | 2024-10-22 09:06 | XMS_ITS | Clinical Summary ---
Author Organization [facility] Address [address] [place] [address] Care Team Providers Care Surveillance Dual Rate Officer Name Role Phone Pcp, No Primary Care Provider Unavailabl e Allergies No known active allergies Medications No known medications Encounters Date Type Department Care Team Description 09/08/2024 9:00 AM EST Office Visit [facility] [address] [place] [address] [address] [place] [phone] Darrius Taylor MD Sitarek, Gerri L, CLIF Wound of left leg, subsequent encounter (Primary Dx) 09/08/2024 Travel 09/03/2024 7:21 PM EST - 09/03/2024 11:07 PM EST Emergency [facility] Emergency Department [address] [place] [phone] Olivia Page MD Cellulitis (Primary Dx); Visit for wound check Discharge Disposition: Home or Self Care 09/03/2024 Travel 08/20/2024 2:35 PM EST - 08/20/2024 5:51 PM EST Emergency [facility] Emergency Department [address] [place] [phone] Carla Evans MD Laceration of left thigh, initial encounter (Primary Dx); Thigh laceration involving tendon, left, initial encounter Discharge Disposition: Home or Self Care 08/20/2024 Travel from Last 3 Months Immunizations Name Administration Dates Next Due Tdap 08/20/2024 Social History Tobacco Use Types Packs/Day Years Used Date Smoking Tobacco: Never Smokeless Tobacco: Never Tobacco Cessation:Counseling Given: Not Answered Alcohol Use Standard Drinks/Week Comments Never 0 (1 standard drink = 0.6 oz pur e alcohol) Sex and Gender Information Value Date Recorded Sex Assigned at Male 08/20/2024 2:56 PM EST Gender Identity Male 08/20/2024 2:56 PM EST Sexual Orientation Heterosexual (straight) 08/20 2:56 PM EST Last Filed Vital Signs Vital Sign Reading Time Taken Comments Blood Pressure 134/78 09/08/2024 8:49 AM EST Pulse 91 09/08/2024 8:49 AM EST Temperature 36.1 ??C (96.9 ??F) 09/08/2024 8:49 AM ES T Respiratory Rate 18 09/03/2024 7:18 PM EST Oxygen Saturation 99% 09/08/2024 8:49 AM EST Inhaled Oxygen Concentration - - Weight 91.1 kg (200 lb 12.8 oz) 09/08/2024 8:49 AM EST Height - - Body Mass Index - - Plan of Treatment Health Maintenance Due Date Last Done Comments Hepatitis C Virus Screening 1993 HIV Screening 2006 Hepatitis B Vaccines (1 of 3 - 19+ 3-dose series) 2012 Influenza Vaccine 03/26/2024 COVID-19 Vaccine (2023-2 5 season) 2024 DTaP/Tdap/Td Vaccines (2 - T d or Tdap) 08/20/2034 08/20/2024 HPV Vaccines Aged Out No longer eligi ble based on patient's age to complete this topic Pneumococcal Vaccine: Pediat lnae (0-5 Years) and At-Risk Patients (6 to 49 Years) Aged Out No longer eligible b ased on patient's age to complete this topic Procedures Procedure Name Priority Date/Time Associated Diagnosis Comments POCT GLUCOSE, FINGERSTICK (CHARGE) Routine 08/20/2024 5:11 PM EST TN REPAIR INTERMEDIATE S/A/T/E 2.5 CM/< Routine 08/20/2024 4:39 PM EST XR FEMUR 2+ VIEWS-LEFT STAT 2:56 PM EST TYPE AND SCREEN STAT 08/20/2024 2:35 PM EST POCT GLUCOSE, FINGERSTICK (CHARGE) Routine 08/20/2024 2:34 PM EST LACTIC ACID, PLASMA Routine 08/20/2024 2 :30 PM EST PHOSPHORUS STAT 08/20/2024 2:30 PM EST MAGNESIUM STAT 08/20/2024 2:30 PM EST COMPREHENSIVE METABOLIC PANEL STAT 08/20/2024 2:30 PM EST COMPLETE BLOOD COUNT, WITH DIFFERENTIAL STAT 08/20/2024 2:30 PM EST ABO CONFIRMATION Routine 08/20/2024 2:25 PM EST from Last 3 Months Results * POCT Glucose, Fingerstick (08/20/2024 5:11 PM EST) Only the most recent of2 resultswithin the time period is included. POC Glucose 94 65 - 99 mg/dL 08/20/2024 5:12 PM EST Blood specimen / Unknown 08/20/2024 5:11 PM EST 08/20/2024 5:12 PM EST Carla Evans MD POINT OF CARE TEST O RDERABLES [facility]OSPITAL LAB See Below * TN REPAIR INTERMEDIATE S/A/T/E 2.5 CM/< (08/20/2024 4:39 PM EST) Narrative Darrius Stapleton MD - 08/20/2024 4:39 PM EST Guerita Leonardo MD ? 08/20/2024 ??4:44 PM LACERATION REPAIR Date/Time: 08/20/2024 4:39 PM Performed by: Guerita Leonardo MD Authorized by: Darrius Stapleton MD ??Consent: Verbal consent obtained. Risks and benefits: risks, benefits and alternatives were discussed Consent given by: patient Patient understanding: patient states understanding of the procedure being performed Body area: lower extremity Location details: left upper leg Foreign bodies: no foreign bodies Tendon involvement: none Vascular damage: no Anesthesia: local infiltration Anesthesia: Local Anesthetic: lidocaine 1% without epinephrine Anesthetic total: 20 mL Sedation: Patient sedated: no Preparation: Patient was prepped and draped in the usual sterile fashion. Irrigation solution: saline Irrigation method: syringe Amount of cleaning: extensive Skin closure: Ethilon (2-0) Subcutaneous closure: 2-0 Vicryl Number of sutures: 21 (5x Vicryl subcutaneous + 16x Ethilon skin) Approximation: close Approximation difficulty: complex Dressing: antibiotic ointment Darrius Stapleton MD PROCEDURE/MINOR SURG ICAL ORDERABLES * XR Femur 2+ views-Left (08/20/2024 2:56 PM EST) Anatomical Region Laterality Modality Leg Left Computed Radiogr aphy 08/20/2024 2:39 PM EST Impressions 08/20/2024 3:53 PM EST Large soft tissue defect along the anteromedial aspect of the right thigh. No radiopaque foreign bodies. No osseous abnormalities. Interpreted by: ??Epifanio Woodall DO Health Promotion Educator I personally reviewed the images and the resident's preliminary report and AGREE with the report as it is now presented ([email or web address]). Narrative 08/20/2024 3:53 PM EST EXAMINATION: XR FEMUR, LEFT CLINICAL INFORMATION: large laceration ?? COMPARISON: None available. TECHNIQUE: AP and lateral views of the left femur were obtained. FINDINGS: Bones are normal with no evidence of fracture. Visualized portions of the left knee and left hip are unremarkable. There is a large soft tissue defect along the anteromedial aspect of the thigh. No radiopaque foreign bodies are identified. Procedure Note Dustin Leonardo MD - 08/20/2024 EXAMINATION: XR FEMUR, LEFT CLINICAL INFORMATION: large laceration COMPARISON: None available. TECHNIQUE: AP and lateral views of the left femur were obtained. FINDINGS: Bones are normal with no evidence of fracture. Visualized portions of the left knee and left hip are unremarkable. There is a large soft tissue defect along the anteromedial aspect of the thigh. No radiopaque foreign bodies are identified. IMPRESSION: Large soft tissue defect along the anteromedial aspect of the right thigh. No radiopaque foreign bodies. No osseous abnormalities. Interpreted by: Epifanio Woodall DO Health Promotion Educator I personally reviewed the images and the resident's preliminary report and AGREE with the report as it is now presented ([email or web address]). Carla Evans MD IMG DIAGNOSTIC IMAGI NG ORDERABLES * Type and Screen (08/20/2024 2:35 PM EST) ABO/Rh A POSITIVE 08/20/2024 4:29 PM [facility] Antibody Screen NEGATIVE 08/20/2024 4:29 PM [facility] Specimen Expiration 08/23/2024 08/20/2024 4:29 PM [facility] Blood Bank Comment Second Sample needed for Blood Transfusion 08/20/2024 4:29 PM [facility] Blood Blood specimen / Unknown 08/20/2024 2:35 PM EST 08/20/2024 3:31 PM EST Carla Evans MD BLOOD BANK TEST LUIS LOPEZ Performing Organization Address City/State/[facility] [place] [address], [place] [address] * Complete Blood Count w/ Differential (08/20/2024 2:30 PM EST) White Blood Cell Count 10.6 4.0 - 11.0 Thou/uL 08/20/2024 3:03 PM [facility] Platelet Count 284 150 - 450 Thou/uL 08/20/2024 3:03 PM [facility] Hemoglobin 14.0 13.0 - 17.7 g/dL 08/20/2024 3:03 PM [facility] Hematocrit 44.7 39.0 - 54.0 % 08/20/2024 3:03 PM [facility] Red Blood Cell Count 5.23 4.50 - 6.20 Mil/uL 08/20/2024 3:03 PM [facility] MCV 86 80 - 100 fL 08/20/2024 3:03 PM [facility] MCH 26.8 26.0 - 34.0 pg 08/20/2024 3:03 PM [facility] MCHC 31.3 30.0 - 36.0 g/dL 08/20/2024 3:03 PM [facility] RDW 12.2 11.5 - 14.5 % 08/20/2024 3:03 PM [facility] MPV 9.5 7.5 - 12.5 fL 08/20/2024 3:03 PM [facility] Neutrophils Auto 46.5 % 08/20/20 3:03 PM [facility] Immature Granulocytes 0.2 % 08/20/2024 3:03 PM [facility] Lymphocytes Auto 40.8 % 08/20/20 3:03 PM [facility] Monocytes Auto 8.8 % 08/20/2024 3:03 PM [facility] Eosinophils Auto 3.2 % 08/20/20 3:03 PM [facility] Basophils Auto 0.5 % 08/20/2024 3:03 PM [facility] Abs Neutrophils Auto 4.95 2.00 - 7.50 Thou/uL 08/20/2024 3:03 PM [facility] Abs Immature Granulocytes 0.02 0.00 - 0.10 Thou/uL 08/20/2024 3:03 PM [facility] Abs Lymphocytes Auto 4.34 1.50 - 4.50 Thou/uL 08/20/2024 3:03 PM [facility] Abs Monocytes Auto 0.94 0.20 - 1.50 Thou/uL 08/20/2024 3:03 PM [facility] Abs Eosinophils Auto 0.34 0.00 - 0.70 Thou/uL 08/20/2024 3:03 PM [facility] Abs Basophils Auto 0.05 0.00 - 0.20 Thou/uL 08/20/2024 3:03 PM [facility] Blood Blood specimen / Unknown 08/20/2024 2:30 PM EST 08/20/2024 2:55 PM EST Carla Evans [place] [address], [place] [address] * Phosphorus (08/20/2024 2:30 PM EST) Phosphorus 3.8 2.7 - 4.5 mg/dL 08/20/2024 3:24 PM [facility] Blood (Plasma/Serum) 08/20/2024 2:30 PM EST 08/20/2024 2:55 PM EST Carla Evans MD LAB BLOOD ORDERABLES Performing Organization Address [facility]/[place] [address], [place] [address] * Magnesium (08/20/2024 2:30 PM EST) Magnesium 2.2 1.6 - 2.7 mg/dL 08/20/2024 3:24 PM EST [facility] Blood (Plasma/Serum) 08/20/2024 2:30 PM EST 08/20/2024 2:55 PM EST Carla Evans MD LAB BLOOD ORDERABLES Performing Organization Address [facility] [place] [address], [place] [address] * (ABNORMAL) Lactic Acid, Plasma (08/20/2024 2:30 PM EST) Lactic Acid 4.4(HH) 0.5 - 1.9 mmol/L 08/20/2024 3:26 PM EST [facility] Blood Plasma specimen / Unknown 08/20/2024 2:30 PM EST 08/20/2024 2:54 PM EST Carla Evans MD LAB BLOOD ORDERABLES Performing Organization Address City/[facility]/[place] [address], [place] [address] * (ABNORMAL) Comprehensive Metabolic Panel (08/20/2024 2:30 PM EST) Glucose 130(H) 65 - 99 mg/dL 08/20/2024 3:24 PM EST [facility] Comment:Fasting: <100 mg/dL, Non-Fasting: <200 mg/dL (ADA 2005) Blood Urea Nitrogen (BUN) 23(H) 8 - 21 mg/dL 08/20/2024 3:24 PM [facility] Creatinine 1.2 0.5 - 1.3 mg/dL 08/20/2024 3:24 PM [facility] eGFR 83 >59 08/20/2024 3:24 PM [facility] Comment:CKD-EPI (2020) in mL /min/1.73 sq meters. Sodium 141 136 - 145 mmol/L 08/20/2024 3:24 PM [facility] Potassium 3.5 3.4 - 5.3 mmol/L 08/20/2024 3:24 PM [facility] Chloride 102 98 - 107 mmol/L 08/20/2024 3:24 PM [facility] CO2 23 22 - 33 mmol/L 08/20/2024 3:24 PM [facility] Calcium 9.1 8.7 - 10.5 mg/dL 08/20/2024 3:24 PM [facility] Alkaline Phosphatase 84 45 - 128 U/L 08/20/2024 3:24 PM [facility] Aspartate Aminotrans (AST) 24 10 - 55 U/L 08/20/2024 3:24 PM [facility] Alanine Aminotrans (ALT) 25 10 - 55 U/L 08/20/2024 3:24 PM [facility] Bilirubin, Total 0.2 0.2 - 1.0 mg/dL 08/20/2024 3:24 PM [facility] Protein, Total 7.5 6.3 - 8.3 g/dL 08/20/2024 3:24 PM [facility] Albumin 4.7 3.5 - 5.0 g/dL 08/20/2024 3:24 PM [facility] BUN/Creatinine Ratio 19 10.0 - 25.0 Ratio 08/20/2024 3:24 PM [facility] Globulin 2.8 1.5 - 3.9 g/dL 08/20/2024 3:24 PM [facility] Albumin/Globulin Ratio 1.7 1.0 - 3.0 Ratio 08/20/2024 3:24 PM [facility] Anion Gap 16 7 - 17 08/20/2024 3:24 PM [facility] Blood (Plasma/Serum) 08/20/2024 2:30 PM EST 08/20/2024 2:55 PM EST Carla Evans MD LAB BLOOD ORDERABLES Performing Organization Address City/[facility]/[place] [address], [place] [address] * ABO Confirmation (08/20/2024 2:25 PM EST) ABO/Rh A POSITIVE 08/20/2024 4:29 PM EST [facility] Blood specimen / Unknown 08/20/2024 2:25 PM EST 08/20/2024 3:33 PM EST Carla Evans MD BLOOD BANK TEST [facility] Performing Organization Address [facility] [place] [address], [place] [address] from Last 3 Months Care Teams Surveillance Dual Rate Officer Relationship Specialty Start Date End Date Pcp, No PCP - General 09/08/24
--- OUTSIDE RECORDS SUMMARY | 2024-10-22 09:06 | XMS_ITS | Encounter Summary ---
Author Organization [facility] Address [address] [place] [address] Care Team Providers Care Exhaust Tender Name Role Phone Pcp, No Primary Care Provider Unavailabl e Encounter Details Date Type Department Care Team (Late st Contact Info) Description 09/08/2024 9:00 AM EST Office Visit [facility] [address] [facility] 5th [place] [phone] Darrius Taylor MD [address] [phone] Alona Viveros PA-C [address] [place], [place] [phone] Wound of left leg, subsequent encounter (Primary Dx) Social History Tobacco Use Types Packs/Day Years [...] Orientation Heterosexual (straight) 08/20 2:56 PM EST documented as of this encounter Last Filed Vital Signs Vital Sign Reading Time Taken Comments Blood Pressure 134/78 09/08/2024 8:49 AM EST Pulse 91 09/08/2024 8:49 AM EST Temperature 36.1 ??C (96.9 ??F) 09/08/2024 8:49 AM ES T Respiratory Rate - - Oxygen Saturation 99% 09/08/2024 8:49 AM EST Inhaled Oxygen Concentration - - Weight 91.1 kg (200 lb 12.8 oz) 09/08/2024 8:49 AM EST Height - - Body Mass Index - - documented in this encounter Patient Instructions * Patient Instructions* Alona Viveros PA-C - 09/08/2024 9:30 AM EST Your left thigh wound is healing well. Continue with the damp to dry dressings daily until the wound scabs over then you no longer need to continue the dressing changes. Continue showering normally and keeping the wound clean If the wound is not healed in the next month reach back out for another wound check. Other cano youdo not need to follow up any further with trauma clinic documented in this encounter Progress Notes * Alona Viveros PA-C - 09/08/2024 9:36 AM EST Images from the original note were not included. Assessment & Plan This is a 29yo male who presented initially on 08/20/24 suffering a laceration to his left thigh via angle gringer. Wound was washed and sutured closed. Patient returned to the ED 09/03/24 dut to concerns that some sutures had pulled through and there was some drainage. On ED visit, the sutures were removed and small open area distally was treated with BID wet to dry dressings and keflex x5 days. Patient presented to clinic today for wound evaluation - Wound appears to be healing well no signs of infection present - Can continue damp to dry dressings daily now. Continue to shower as you have been - if the lower portion of the wound has not closed and scabbed over in 1 month patient instructed to reach back out for evaluation. - no further need to follow up in trauma clinic. Subjective Subjective HPI: Patient states he has been feeling well, the redness surrounding the wound has subsided significantly since the sutures were removed and he completed the ABX. Patient states he has had some drainage from the lower portion of the wound that is being treated with damp to dry dressings but the consistency is more bloody and clear fluid, not purulent. Denies fevers or chills, ROS: denies except stated above. Objective Objective Vitals: 09/08/24 0849 BP: 134/78 Pulse: 91 Temp: 96.9 ??F (36.1 ??C) SpO2: 99% Weight: 91.1 kg (200 lb 12.8 oz) Physical Exam: Left thigh: majority of wound healed except for most distal aspect approximately 3 cm in length. Red granulation tissue within wound bed, no palpable fluctuance or fluid underneath wound, non tender,no erythema. 2+ distal pulses documented in this encounter Plan of Treatment Not on file documented as of this encounter Visit Diagnoses Diagnosis Wound of left leg, subsequent encounter- Primary documented in this encounter Care Teams Exhaust Tender Relationship Specialty Start Date End Date Pcp, No PCP - General 09/08/24 documented as of this encounter
[2024-10-22 11:32] LABS: MANUAL DIFF FLAG NO
[2024-10-22 11:33] LABS: Appearance Urine Turbid; Color Urine Yellow; Glucose Urine UA Negative (Negative); Leukocyte Esterase Urine Negative (Negative); Nitrite Urine Negative (Negative); PH 5.5 (5.0-9.0); Specific Gravity - Urine >= 1.030 (1.005-1.025); Urine Blood Negative (Negative); Urine Ketones Trace mg/dL (Negative); Urine Protein Negative (Neg-Trace)
[2024-10-22 12:03] LABS: Basophils Percent Auto 0.6 % (0-2); Eosinophils Absolute Auto 0.2 X10*3/uL (0.0-0.4); Eosinophils Percent Auto 5.2 % (0-4); Hematocrit 44.1 % (42.0-52.0); Hemoglobin 14.3 g/dl (14.0-18.0); Imm Gran Abs Auto 0.01 X10*3/uL (0.00-0.03); Imm Gran Pct Auto 0.2 % (0.0-0.4); Lymphocytes Absolute Auto 1.5 X10*3/uL (1.2-4.9); Lymphocytes Percent Auto 32.4 % (20-40); Mean Corpuscular HGB Conc 32.4 g/dl (31.0-36.0); Mean Corpuscular Hemoglobin 27.2 pg (27.0-33.0); Mean Corpuscular Volume 83.8 fL (80.0-98.0); Monocytes Absolute Auto 0.4 X10*3/uL (0.1-1.2); Monocytes Percent Auto 9.5 % (2-11); Neutrophils Absolute Auto 2.4 x10*3/uL (2.0-8.3); Neutrophils Percent Auto 52.1 % (45-73); Platelet Count 222 X10*3/uL (160-400); Red Blood Count 5.26 X10*6/uL (4.60-5.80); Red Cell Distribution Width 12.4 % (11.0-16.0); White Blood Count 4.6 X10*3/uL (4.8-10.8)
[2024-10-22 12:27] LABS: Creatinine Urine 244.09 mg/dL; Microalbum/Creatinine Ratio Ur 3.6 ug/mg cr (<30)
[2024-10-22 12:43] LABS: Alanine Aminotransferase 21 U/L (0-40); Albumin Level 4.5 g/dL (3.5-5.0); Alkaline Phosphatase 70 U/L (39-117); Anion Gap 9 (12-20); Aspartate Amino Transferase 27 U/L (5-37); Bilirubin Total 0.6 mg/dL (0.0-1.0); Blood Urea Nitrogen 14 mg/dL (9-16); Calcium 9.4 mg/dL (8.4-10.2); Carbon Dioxide 28 mmol/L (22-29); Chloride 105 mmol/L (96-108); Cholesterol 199 mg/dL (<200); Estimated Glomerular Filt Rate > 60; Glucose Fasting 97 mg/dL (60-99); HDL Cholesterol 54 mg/dL (>40); LDL Cholesterol Calculated 126 mg/dL (<100); Potassium 4.3 mmol/L (3.3-5.1); Sodium 138 mmol/L (135-145); Total Protein 7.8 g/dL (6.5-8.0); Triglycerides 97 mg/dL (<150)
[2024-10-22 12:58] LABS: TSH reflex Free T4 1.36 uIU/mL (0.32-4.0); Vitamin D 25-OH Total 54.9 ng/mL (>30)
== END 2024-10-22 08:36 | disposition home or self-care (01) ==
LOC: HO.WFDLDS 08:35
PROVIDERS: Visit Provider Nurse Practitioner Family
DX: Z00.00 Encounter for general adult medical examination without abnormal findings (principal)
CPT/HCPCS: 36415; 80053; 80061; 81003; 82043; 82306; 82570; 84443; 85025